=== PATIENT | male | born 1980 | race Two or more races ===

== ENCOUNTER 2018-12-18 19:32 | Observation (INO) | payer SELFPAY ==
[2018-12-18 19:42] VITALS: BMI 32.1
--- NOTE | 2018-12-18 21:30 | PDOC ---
History of Present Illness - General Chief Complaint: Chest Pain Stated Complaint: CHEST PAIN NUMBNESS IN HAND Time Seen by Provider: 12/18/18 21:22 History Source: Patient Exam Limitations: No Limitations - History of Present Illness Initial Comments: Pt is a 38 yo M, with NIDDM and GERD, who is presenting with complaints of L- sided chest pain x2 weeks. Pt states the pain is non-exertional and is not worsened with moving. He says the pain over the past 2 days has been constant, and is a pressure-like feeling. He came to the ER today because the pain has become more intense and has not been intermittent. It has also been associated with numbness in b/l arms, and decreased sensation in his lower face b/l. Pt denies any recent fevers/chills, headache, vision changes, syncope, SOB, nausea/ vomiting, abdominal pain, urinary symptoms, diarrhea/constipation, or leg swelling. Pt has not taken his DM medications for over 2 years since running out of insurance. He had a cardiac stress test done ~4 years ago which was normal. Social: Pt denies any cigarette, alcohol, or drug use. Pt denies any recent travel or sick contacts. Surgical: no relevant history. Family: GM: [place] in 60s; GF - [place] in 50s; mother - DM 12/18/18 23:46 Past History - Travel Traveled outside of the country in the last 30 days: No Close contact w/someone who was outside of country & ill: No - Past Medical History Allergies/Adverse Reactions: Allergies Allergy/AdvReac Type Severity Reaction Status Date / Time No Known Allergies Allergy Verified 12/18/18 19:39 COPD: No Diabetes: Yes (? possible) - Suicide/Smoking/Psychosocial Hx Smoking History: Never smoked Review of Systems - Review of Systems Able to Perform ROS?: Yes Is the patient limited Hungarian proficient: No Constitutional: Yes: Weight Stable. No: Chills, Diaphoresis, Fever, Loss of Appetite, Malaise, Weakness HEENTM: No: Recent change in vision, Nose Congestion, Throat Pain, Throat Swelling Respiratory: No: Cough, Orthopnea, Shortness of Breath Cardiac (ROS): Yes: Chest Pain, Palpitations. No: Edema, Irregular Heart Rate, Lightheadedness, Syncope, Chest Tightness ABD/GI: No: Constipated, Diarrhea, Nausea, Poor Appetite, Poor Fluid Intake, Vomiting, Abdominal cramping : No: Burning, Dysuria, Pain, Urgency Musculoskeletal: No: Back Pain, Joint Pain, Muscle Weakness Integumentary: No: Rash Neurological: Yes: See HPI, Numbness, Paresthesia. No: Headache, Tingling, Tremors, Weakness, Unsteady Gait, Dizziness Psychiatric: No: Sleep Pattern Change, Change in Appetite Endocrine: No: Increased Urine, Change in Weight Hematologic/Lymphatic: No: Anemia, Blood Clots, Easy Bleeding, Easy Bruising All Other Systems: Reviewed and Negative *Physical Exam - Vital Signs Last Vital Signs Temp Pulse Resp BP Pulse Ox 98.2 F 66 18 111/66 100 12/18/18 19:39 12/18/18 19:39 12/18/18 19:39 12/18/18 19:39 12/18/18 19:39 - Physical Exam Comments: Vitals stable, pt afebrile. Pt in NAD, normal body habitus. PE showed pt alert and oriented. product safety head generally intact, muscular strength and sensation intact. Eyes PERRLA, EOMI. Oropharynx without erythema or exudates, no LAD b/l. No nasal congestion, hearing intact. Clear heart sounds, S1/S2, no JVD, b/l pedal edema, or heart murmur. Clear lung sounds, no respiratory distress, wheezes, crackles, or accessory muscle use. No chest wall tenderness to palpaiton, chest pain not reproducible with movement. No abdominal or CVA tenderness to palpation , no rebound, no guarding. Abdomen soft, non-distended, and with normoactive bowel sounds. Skin without jaundice or rash. 12/18/18 23:48 Moderate Sedation - Procedure Monitoring Vital Signs: Procedure Monitoring Vital Signs Temperature 98.2 F 12/18/18 19:39 Pulse Rate 66 12/18/18 19:39 Respiratory Rate 18 12/18/18 19:39 Blood Pressure 111/66 12/18/18 19:39 O2 Sat by Pulse Oximetry (%) 100 12/18/18 19:39 Heart Score/ECG Review - History History: Slightly suspicious - Electrocardiogram EKG: Normal - Age Age: </= 45 - Risk Factors Risk Factors Heart Score: Yes Hx Diabetes, Yes Positive family hx of cardiac disease Based on the list above the patient has:: 1-2 risk factors ED Treatment Course - LABORATORY CBC & Chemistry Diagram: 12/18/18 22:30 12/18/18 22:30 Medical Decision Making - Medical Decision Making Pt was seen at bedside, also will be seen by attending Dr. Duggan. Pt presenting with complaints of L-sided chest pain x2 weeks. Pt states the pain is non-exertional and is not worsened with moving. He says the pain over the past 2 days has been constant, and is a pressure-like feeling. He came to the ER today because the pain has become more intense and has not been intermittent. It has also been associated with numbness in b/l arms, and decreased sensation in his lower face b/l. Pt denies any recent fevers/chills, headache, vision changes, syncope, SOB, nausea/vomiting, abdominal pain, urinary symptoms, diarrhea/constipation, or leg swelling. Pt has not taken his DM medications for over 2 years since running out of insurance. He had a cardiac stress test done ~4 years ago which was normal. Vitals stable, pt afebrile. Pt in NAD, normal body habitus. PE showed pt alert and oriented. product safety head generally intact, muscular strength and sensation intact. Eyes PERRLA, EOMI. Oropharynx without erythema or exudates, no LAD b/l. No nasal congestion, hearing intact. Clear heart sounds, S1/S2, no JVD, b/l pedal edema, or heart murmur. Clear lung sounds, no respiratory distress, wheezes, crackles, or accessory muscle use. No chest wall tenderness to palpaiton, chest pain not reproducible with movement. No abdominal or CVA tenderness to palpation , no rebound, no guarding. Abdomen soft, non-distended, and with normoactive bowel sounds. Skin without jaundice or rash. Considering ACS vs atypical angina vs MSK strain/costochondritis Ordered work-up including CBC, CMP, cardiac profile (trop x2), chest x-ray, ECG. No interventions provided at this time. Will continue to reassess pt and monitor for symptomatic improvement. ECG: NSR, intervals WNL. No TWIs or significant ST segment changes. No significant changes from prior ECG. 12/18/18 22:10 CBC and CMP WNL. First troponin <.02 -- second troponin to be drawn at 1:30. Pt taken for chest x-ray. 12/18/18 23:34 Chest x-ray appears clear, no lobar infiltrates, no cardiomegaly. 12/18/18 23:42 Hospitalist team accepted pt for admission to [facility] (Dr. Hazel). Providing pt 0.4 SL NG and 182 mg PO aspirin. 12/19/18 00:07 *DC/Admit/Observation/Transfer Diagnosis at time of Disposition: Chest pain Qualifiers: Chest pain type: unspecified Qualified Code(s): R07.9 - Chest pain, unspecified - Discharge Dispostion Condition at time of disposition: Stable Decision to Admit order: Yes - Referrals - Patient Instructions - Post Discharge Activity
--- NOTE | 2018-12-18 21:59 | PDOC ---
Attending Attestation - HPI HPI: 12/18/18 23:32 The patient is a 38 year old male with a PMH of NIDDM, who has not been treated for the past 2 years 2/2 insurance issues, and GERD who presents to the ER with chest pressure for the past two weeks. Patient states the chest pressure is nonexertional with associated numbness/tingling to both arms, slight numbness on the left cheek, and lightheadedness. Patient reports the chest pressure worsened these past two days and became more constant prompting him to come to the ER for further evaluation. Denies taking meds at home. Denies any prior evaluations for his chest pain. Patient is a nonsmoker and denies any cardiac history. Patient has a positive cardiac history in his family. Patient denies shortness of breath, headache and dizziness. Denies fever, chills, nausea, vomit, diarrhea and constipation. Denies dysuria, frequency, urgency and hematuria. Allergies: NKA Past surgical history: None reported. Social history: No reported alcohol, drug or cigarette use. - Physicial Exam PE: 12/18/18 23:32 Agree with resident's exam. <Negin Jones - Last Filed: 12/18/18 23:49> - Resident Resident Name: Sarita Cavanaugh - ED Attending Attestation I have performed the following: I have examined & evaluated the patient, The case was reviewed & discussed with the resident, I agree w/resident's findings & plan - Medical Decision Making 12/19/18 00:00 38-year-old male with intermittent chest pain Patient has active discomfort in the emergency department as well as newly revealed family history of coronary artery disease and myocardial infarction in multiple family members under the age of 50 He will be held on hospitalist service for observation <Lanny Duggan - Last Filed: 12/19/18 00:01>
[2018-12-18 22:37] LABS: BASO % 0.7 % (0-2.0); EOS % 3.2 % (0-4.5); HEMOGLOBIN 14.1 GM/dL (11.7-16.9); LYMPH % 35.1 % (8-40); MCH 27.4 pg (25.7-33.7); MCHC 34.4 g/dl (32.0-35.9); MEAN CELL VOLUME 79.7 fl (80-96); MEAN PLT VOLUME 7.6 fl (7.5-11.1); MONO % 4.8 % (3.8-10.2); NEUT % 56.2 % (42.8-82.8); PLATELET COUNT 192 K/MM3 (134-434); RBC 5.14 M/mm3 (4.00-5.60); RDW 14.1 % (11.9-15.9); WHITE BLOOD COUNT 8.1 K/mm3 (4.0-10.0)
[2018-12-18 23:24] LABS: ALK PHOS 93 U/L (45-117); ANION GAP 7 MMOL/L (8-16); BILIRUBIN,TOTAL 0.4 mg/dL (0.2-1); BLOOD UREA NITROGEN 22 mg/dL (7-18); CALCIUM 8.8 mg/dL (8.5-10.1); CHLORIDE 106 mmol/L (98-107); CO2 28 mmol/L (21-32); CREATININE 1.1 mg/dL (0.55-1.3); GLUCOSE,RANDOM 90 mg/dL (74-106); SGOT/AST 20 U/L (15-37); SGPT/ALT 35 U/L (13-61); SODIUM 142 mmol/L (136-145)
[2018-12-18] MEDS ORDERED: ASPIRIN 81 MG CHEWABLE TABLETS PO ONE (23:49)
[2018-12-18] MEDS ORDERED: NITROGLYCERIN SUBLINGUAL 1/150 0.4 MG TAB SL ONE (23:50)
[2018-12-19] MEDS ORDERED: NITROGLYCERIN SUBLINGUAL 1/150 0.4 MG TAB ONE (00:14)
[2018-12-19] MEDS ORDERED: ASPIRIN 81 MG CHEWABLE TABLETS ONE (00:14)
--- NOTE | 2018-12-19 00:32 | HP ---
CHIEF COMPLAINT:chest pain PCP:none HISTORY OF PRESENT ILLNESS: Patient is a 38 year old male with past medical history of GERD, presented with constant left-sided chest pain that started 2 weeks ago. Patient described pain as constant, pressure-like 5/10, nonradiating, left-sided chest pain, with no aggravating or alleviating symptoms. Today, patient reported pain was worse and more persistent. He also reported having some lightheadedness and facial numbness on his left cheek that started this morning, that spontaneously resolved in the afternoon. Otherwise, patient denies any fever, chills, headache , nausea, vomiting, SOB, palpitations, abdominal pain, diarrhea, urinary symptoms. ER course was notable for: (1)Trop <0.02, EKG NSR with no ST-T wave abnormalities (2) (3) Recent Travel:denies PAST MEDICAL HISTORY: GERD PAST SURGICAL HISTORY: none Social History: Smoking:denies Alcohol:denies Drugs: denies Lives with and 2 children. 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 Family History: Mother - DM Brother - HTN First cousin - sudden cardiac at 30s Allergies No Known Allergies Allergy (Verified 12/18/18 19:39) HOME MEDICATIONS: REVIEW OF SYSTEMS CONSTITUTIONAL: Absent: fever, chills, diaphoresis, generalized weakness, malaise, loss of appetite, weight change HEENT: Absent: rhinorrhea, nasal congestion, throat pain, throat swelling, difficulty swallowing, mouth swelling, ear pain, eye pain, visual changes CARDIOVASCULAR: Absent: chest pain, syncope, palpitations, irregular heart rate, lightheadedness , peripheral edema RESPIRATORY: Absent: cough, shortness of breath, dyspnea with exertion, orthopnea, wheezing, stridor, hemoptysis GASTROINTESTINAL: Absent: abdominal pain, abdominal distension, nausea, vomiting, diarrhea, constipation, melena, hematochezia GENITOURINARY: Absent: dysuria, frequency, urgency, hesitancy, hematuria, flank pain, genital pain MUSCULOSKELETAL: Absent: myalgia, arthralgia, joint swelling, back pain, neck pain SKIN: Absent: rash, itching, pallor HEMATOLOGIC/IMMUNOLOGIC: Absent: easy bleeding, easy bruising, lymphadenopathy, frequent infections ENDOCRINE: Absent: unexplained weight gain, unexplained weight loss, heat intolerance, cold intolerance NEUROLOGIC: Absent: headache, focal weakness or paresthesias, dizziness, unsteady gait, seizure, mental status changes, bladder or bowel incontinence PSYCHIATRIC: Absent: anxiety, depression, suicidal or homicidal ideation, hallucinations. PHYSICAL EXAMINATION Vital Signs - 24 hr 12/18/18 12/18/18 19:39 21:50 Temperature 98.2 F Pulse Rate 66 Pulse Rate [ 57 L Apical] Respiratory 18 16 Rate Blood Pressure 111/66 Blood Pressure 132/81 [Left Arm] O2 Sat by Pulse 100 100 Oximetry (%) GENERAL: Awake, alert, and fully oriented, in no acute distress. HEAD: Normal with no signs of trauma. EYES: PERRLA, EOMI, sclera anicteric, conjunctiva clear. EARS, NOSE, THROAT: Ears normal, oropharynx clear without exudates. Moist mucous membranes. NECK: Normal range of motion, supple without lymphadenopathy, JVD, or masses. LUNGS: Breath sounds equal, clear to auscultation bilaterally. HEART: Regular rate and rhythm, normal S1 and S2 without murmur, rub or gallop. ABDOMEN: Soft, nontender, not distended, normoactive bowel sounds. MUSCULOSKELETAL: Normal range of motion at all joints. No CVA tenderness. UPPER EXTREMITIES: 2+ pulses, warm, well-perfused. No peripheral edema. LOWER EXTREMITIES: 2+ pulses, warm, well-perfused. No peripheral edema. NEUROLOGICAL: Cranial nerves II-XII intact. Motor strength 5/5, sensation intact on all extremities. Normal speech. Normal gait. PSYCHIATRIC: Cooperative. Good eye contact. Appropriate mood and affect. SKIN: Warm, dry, normal turgor, no rashes or lesions. Laboratory Results - last 24 hr 12/18/18 12/18/18 12/18/18 21:56 22:30 22:30 WBC 8.1 RBC 5.14 Hgb 14.1 Hct 41.0 MCV 79.7 L MCH 27.4 MCHC 34.4 RDW 14.1 Plt Count 192 MPV 7.6 Absolute Neuts (auto) 4.5 Neutrophils % 56.2 Lymphocytes % 35.1 Monocytes % 4.8 Eosinophils % 3.2 Basophils % 0.7 Nucleated RBC % 0 Sodium 142 Potassium 4.0 Chloride 106 Carbon Dioxide 28 Anion Gap 7 L BUN 22 H Creatinine 1.1 Creat Clearance w eGFR > 60 POC Glucometer 82 Random Glucose 90 Calcium 8.8 Total Bilirubin 0.4 AST 20 ALT 35 Alkaline Phosphatase 93 Creatine Kinase 191 Creatine Kinase Index 0.9 CK-MB (CK-2) 1.9 Troponin I < 0.02 Total Protein 7.0 Albumin 4.0 ASSESSMENT/PLAN: Patient is a 38 year old male with past medical history of GERD, presented with constant left-sided chest pain that started 2 weeks ago. #Typical chest pain, rule out ACS -Initial trop <0.02, EKG unremarkable, with no acute ischemic changes -Aspirin 162mg, Nitroglycerin 0.4mg given at the ED -Will trend trop -Lipid profile -Echo ordered -Tele monitoring -Consider cardio consult. -Will defer to day team if stress test be done as inpatient or outpatient -Will keep NPO for now #Left facial numbness, rule out TIA -Head CT and carotid doppler -Vit B12, folate, TSH levels ordered -neuro checks q4h -Consider brain MRI #FEN -Not on any standing fluids -Electrolytes wnl, routine bmp monitoring -NPO #Prophylaxis -Lovenox 40mg sq daily #Disposition -full code -tele obs Visit type - Emergency Visit Emergency Visit: Yes ED Registration Date: 12/18/18 Care time: The patient presented to the Emergency Department on the above date and was hospitalized for further evaluation of their emergent condition. - New Patient This patient is new to me today: Yes Date on this admission: 12/20/18 - Critical Care Critical Care patient: No
--- NOTE | 2018-12-19 01:02 | PN ---
Teaching Attending Note Name of Resident: Aislinn Vizcaino ATTENDING PHYSICIAN STATEMENT I saw and evaluated the patient. I reviewed the resident's note and discussed the case with the resident. I agree with the resident's findings and plan as documented. SUBJECTIVE: Seen and examined with resident; please refer to their note for further historical documentation. Briefly, this is a 38 y/o male who presents to the ER with a CC of chest pain. It is somewhat atypical in nature, occuring on and off every day for the past 2 weeks before becoming more severe and constant today leading him to come to the ER. His maternal cousin of a PR at his age. he is also obese. Has a history of GERD but no other chronic medical problems. He does not smoke, drink, or use drugs. He also mentions incidentally that he had some left facial numbness (NIHSS 0); nothing makes it better or worse and it is resolving. It happened spontaneously. No history of PFO, etc. States it is almost gone at this point 10 sys ROS done and negative aside from HPI PMH, PSH, Family hx, Social hx reviewed Medication list pending reconciliation OBJECTIVE: VS, labs, imaging reviewed NAD, AAO, resting comfortably in bed NC AT EOMI PERRLA RRR s1/2 no mgr NT ND +BS CN2-12 wnl, no fnd; sensorium actually intact on face; more of parasthesia Normal mood, appropriate behavior EKG reviewed; nonspecific changes Initial troponin pending; labs as a whole are unremarkable ASSESSMENT AND PLAN: Patient presents with chest pain; has multiple risk factors (FH premature CAD, obesity) 1) Chest pain in adult, r/o ACS -Place on telemetry, trend troponin. Can check echo. Discuss with CV utility of further testing. No EKG changes; can consider repeating. He is afebrile and hemodynamically stable. Check TSH/Lipid/A1c 2) L-Facial numbness -Likely parasthesia but need to r/o anything more significant. Checking CT head and B12/TSH. Consider carotid dopplers. Consider MRI in the morning vs. discussing with neurology. If he doesn't have any undiagnosed underlying medical issues (severe vascular dz, PFO, etc.) stroke is very unlikely in a healthy 38 y/o 3) GERD -Continue home meds (takes OTC omeprazole at home) Full code
[2018-12-19 07:18] LABS: BASO % 0.5 % (0-2.0); EOS % 4.3 % (0-4.5); HEMATOCRIT 39.9 % (35.4-49); HEMOGLOBIN 13.3 GM/dL (11.7-16.9); LYMPH % 31.7 % (8-40); MCH 26.6 pg (25.7-33.7); MCHC 33.4 g/dl (32.0-35.9); MEAN CELL VOLUME 79.6 fl (80-96); MEAN PLT VOLUME 8.1 fl (7.5-11.1); MONO % 5.5 % (3.8-10.2); PLATELET COUNT 191 K/MM3 (134-434); RBC 5.02 M/mm3 (4.00-5.60); RDW 14.3 % (11.9-15.9); WHITE BLOOD COUNT 6.3 K/mm3 (4.0-10.0)
[2018-12-19 07:50] LABS: ANION GAP 6 MMOL/L (8-16); BLOOD UREA NITROGEN 25 mg/dL (7-18); CALCIUM 8.1 mg/dL (8.5-10.1); CHLORIDE 107 mmol/L (98-107); CO2 27 mmol/L (21-32); CREATININE 1.1 mg/dL (0.55-1.3); GLUCOSE,RANDOM 134 mg/dL (74-106); MAGNESIUM 2.2 mg/dL (1.8-2.4); PHOSPHOROUS 3.4 mg/dL (2.5-4.9); POTASSIUM 3.9 mmol/L (3.5-5.1); SODIUM 140 mmol/L (136-145)
[2018-12-19] MEDS ORDERED: ENOXAPARIN NA (PORCINE) 40 MG/0.4 ML DISP.SYRIN SQ SCH (10:00)
--- NOTE | 2018-12-19 10:50 | EKG ---
Test Reason : Blood Pressure : / mmHG Vent. Rate : 060 BPM Atrial Rate : 060 BPM P-R Int : 168 ms QRS Dur : 086 ms QT Int : 426 ms P-R-T Axes : 048 016 019 degrees QTc Int : 426 ms NORMAL SINUS RHYTHM NORMAL ECG NO PREVIOUS ECGS AVAILABLE Confirmed by Chuy Osman MD ([id number]) on 12/19/2018 10:49:48 AM Referred By: Confirmed By:Chuy Osman MD
[2018-12-19] MEDS ORDERED: ENOXAPARIN NA (PORCINE) 40 MG/0.4 ML DISP.SYRIN SQ ONE (11:20)
--- NOTE | 2018-12-19 12:08 | CON.CARD ---
Consult Consult Specialty:: cardiology Reason for Consultation:: chest pain; risks for CAD - History of Present Illness Chief Complaint: Pt A&Ox3; presently asymptomatic. His is at bedside. History of Present Illness: Pt is a 38 yo Mman (b. [place]), with NIDDM (diagneosed 2014; stopped Metformin and other meds a year later due to lack of insurance), overweight, sedentary, and GERD, who is presenting with complaints of L-sided chest pain x2 weeks. Pt states the pain is non-exertional and is not worsened with moving. He says the pain over the past 2 days has been constant, and is a pressure-like feeling. He came to the ER today because the pain has become more intense and has not been intermittent. It has also been associated with numbness in b/l arms , and decreased sensation in his lower face b/l. Pt denies any recent fevers/ chills, headache, vision changes, syncope, SOB, nausea/vomiting, abdominal pain , urinary symptoms, diarrhea/constipation, or leg swelling. Pt has not taken his DM medications for over 2 years since running out of insurance. He had a cardiac stress test done ~4 years ago which was normal. Social: Pt denies any cigarette, alcohol, or drug use. Pt denies any recent travel or sick contacts. Surgical: no relevant history. 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 He is on his feet all day, but does little aerobic exercise. Hx stress test in 2014: ?results. - History Source History Provided By: Patient, Family Member, Medical Record Limitations to Obtaining History: No Limitations - Alcohol/Substance Use Hx Alcohol Use: No - Smoking History Smoking history: Never smoked - Social History Usual Living Arrangement: With Spouse Home Medications - Allergies Allergies/Adverse Reactions: Allergies Allergy/AdvReac Type Severity Reaction Status Date / Time ciprofloxacin [From Cipro] Allergy Rash Verified 12/19/18 04:14 - Home Medications Home Medications: Ambulatory Orders Atorvastatin Ca [Lipitor] 20 mg PO HS #30 tablet 12/19/18 Metformin HCl [Metformin HCl ER] 500 mg PO DAILY 12/19/18 Omeprazole 20 mg PO DAILY 12/19/18 Family Disease History - Family Disease History Family Disease History: Heart Disease: Grandparent (grandmother and grandfather of MIs (50 and 60s yr old, respectively)) Review of Systems - Review of Systems Constitutional: reports: No Symptoms Eyes: reports: No Symptoms HENT: reports: No Symptoms Neck: reports: No Symptoms Breasts: reports: No Symptoms Reported Musculoskeletal: reports: No Symptoms Integumentary: reports: No Symptoms Neurological: reports: No Symptoms Endocrine: reports: No Symptoms Hematology/Lymphatic: reports: No Symptoms Psychiatric: reports: No Symptoms - Risk Factors Known Risk Factors: Yes: Age, Diabetes Mellitus, Gender, Hypercholesterolemia, Hypertension, Physical Inactivity Vital Signs: Vital Signs Temperature 98.4 F 12/19/18 11:29 Pulse Rate 64 12/19/18 11:29 Respiratory Rate 18 12/19/18 11:29 Blood Pressure 121/73 12/19/18 11:29 O2 Sat by Pulse Oximetry (%) 98 12/19/18 11:29 Constitutional: Yes: Well Nourished, Calm Eyes: Yes: WNL HENT: Yes: WNL Neck: Yes: WNL Respiratory: Yes: WNL Gastrointestinal: Yes: WNL Renal/: No: Anuria Cardiovascular: Yes: WNL JVD: No Carotid Bruit: No PMI: Non-Displaced Heart Sounds: Yes: S1, S2 Musculoskeletal: Yes: WNL Extremities: Yes: WNL Edema: No Peripheral Pulses WNL: Yes Integumentary: Yes: WNL Neurological: Yes: WNL ...Motor Strength: WNL Psychiatric: Yes: WNL - Other Data Labs, Other Data: CBC, BMP 12/19/18 05:30 12/19/18 06:30 Troponin, BNP 12/18/18 12/19/18 12/19/18 22:30 03:20 06:30 Troponin I < 0.02 < 0.02 < 0.02 Troponin, BNP 12/18/18 12/19/18 12/19/18 22:30 03:20 06:30 Troponin I < 0.02 < 0.02 < 0.02 Abnormal Lab Results 12/18/18 12/18/18 12/19/18 22:30 22:30 05:30 MCV 79.7 L 79.6 L Anion Gap 7 L BUN 22 H Random Glucose Hemoglobin A1c % Calcium Total LDL Cholesterol HDL Cholesterol Vitamin B12 Serum Folate 12/19/18 12/19/1812/19/19 06:00 06:30 06:30 MCV Anion Gap 6 L BUN 25 H Random Glucose 134 H Hemoglobin A1c % 6.6 H Calcium 8.1 L Total LDL Cholesterol 103 H HDL Cholesterol 38 L Vitamin B12 Serum Folate 19 H 12/19/18 06:30 MCV Anion Gap BUN Random Glucose Hemoglobin A1c % Calcium Total LDL Cholesterol HDL Cholesterol Vitamin B12 3431 H Serum Folate Ejection Fraction %: LVEF > or = 40 % Imaging - Results Chest X-ray: Image Reviewed (no acute pathology) EKG: Image Reviewed (normal study) Problem List - Problems (1) Diabetes Assessment/Plan: Normal, then elevated glucose; =HGBA1c 6.6. Hx dx DM in 2015-->metformin (stopped after a year due to lack of insurance). Rec: Evaluation re present state of glucose control. Consider start ACEI for HTN, renal protection. Keep LDL cholesterol < 70 mg/dL. The importance of balanced diet, portion control, exercise, and weight loss was discussed. Code(s): E11.9 - TYPE 2 DIABETES MELLITUS WITHOUT COMPLICATIONS (2) HTN (hypertension) Code(s): I10 - ESSENTIAL (PRIMARY) HYPERTENSION (3) Hyperlipidemia Code(s): E78.5 - HYPERLIPIDEMIA, UNSPECIFIED (4) Obesity (BMI 30.0-34.9) Assessment/Plan: The importance of following a heart-healthy diet, portion control, and exercise as aids to losing weight was disucssed. Code(s): E66.9 - OBESITY, UNSPECIFIED (5) Chest pain Assessment/Plan: TNI < 0.02 x 3. EKG: normal sinus rhythm; normal study. ECHO pending. Multilpe risk factors for CAD, including gender, DM, obesity, sedentary lifestyle, HTN. Stress treadmill MIBI: if without significant ischemia, pt may be followed as outpatient from cardiac perspective. Addendum: Stress MIBI today showed no ischemia. Code(s): R07.9 - CHEST PAIN, UNSPECIFIED Qualifiers: Chest pain type: unspecified Qualified Code(s): R07.9 - Chest pain, unspecified
--- NOTE | 2018-12-19 12:40 | ECHO ---
Name: NGUYEN HLODEN Exam:Adult Echocardiogram Study Date: 12/19/2018 07:55 AM Age: 38 yrs Height: 67 in Weight: 205 lb BSA: 2.0 m2 MMode/2D Measurements & Calculations IVSd: 0.71 cm Ao root diam: 2.8 cm LVIDd: 5.0 cm LA dimension: 3.2 cm LVIDs: 3.2 cm LVPWd: 0.77 cm EDV(Teich): 119.8 ml LVOT diam: 2.1 cm ESV(Teich): 41.3 ml Doppler Measurements & Calculations MV E max javier: 77.5 cm/sec Med Peak E' Javier: 6.6 cm/sec MV A max javier: 53.8 cm/sec Med E/e': 11.8 MV E/A: 1.4 Lat Peak E' Javier: 15.9 cm/sec Lat E/e': 4.9 Procedure A complete two-dimensional transthoracic echocardiogram was performed (2D, M-mode, Doppler and color flow Doppler). Left Ventricle The left ventricular size, thickness and function are normal. Ejection Fraction = 60%. The transmitra l spectral Doppler flow pattern is normal for age. The left ventricular wall motion is normal. Right Ventricle The right ventricle is normal in size and function. Atria Normal left and right atrial size and function. Mitral Valve The mitral valve is normal in structure and function. There is trace mitral regurgitation. Tricuspid Valve The tricuspid valve is normal in structure and function. There is trace tricuspid regurgitation. Ther e was insufficient TR detected to calculate RV systolic pressure. Aortic Valve The aortic valve is normal in structure and function. Pulmonic Valve The pulmonic valve is normal in structure and function. Great Vessels The aortic root is normal size. Pericardium/Pleura There is no pericardial effusion. There is no pleural effusion. Interpretation Summary This was essentially a normal study. The left ventricular size, thickness and function are normal Ejection Fraction = 60%. The right ventricle is normal in size and function. There is trace mitral regurgitation. There is trace tricuspid regurgitation. MD Chuy Osman 12/19/2018 12:39 PM
--- NOTE | 2018-12-19 15:11 | PN ---
Teaching Attending Note Name of Resident: Chintan Carballo ATTENDING PHYSICIAN STATEMENT I saw and evaluated the patient. I reviewed the resident's note and discussed the case with the resident. I agree with the resident's findings and plan as documented. SUBJECTIVE: No fever or chills. reports that his PC resolved. it felt pressure like x 1 week , with no alleviating factors or aggravating factors. no exertional CP or SOB. he reported a small area of numbness on left cheek about 0.5 cm in diameter. that resolved after lasting for yesterday. no weakness, no tingling. no JACOB or change in vision . he reports chronic numbness in his hands for which he had nerve conduction studies as out pt. He had stress test OBJECTIVE: NAD Cv: RRR Lungs: CTAB Ext : no edema or erythema , no fungal infection among toes Neuro; EOMI, round equal pupils, reactive to light. No facial droop. Nl facial sensation. strength 5/5 in upper nad lower extremities proximally and distally. sensation to light touch NL. Reflexes 2+ knee jerk and biceps and BR b/l. ASSESSMENT AND PLAN: 38 y/o man with h/o Dm and and GERD who presented with CP and complained of L sided numbness in face 1- CP: description is atypical in nature, but due to the risk factors he has, stress test was done. results are pending. EKG reviewed.no ischemic changes. appreciate Dr. keyes's help. start lipitor due to LDL above gall. will hold off asa unless stress test is + he can be started on ACEI as out pt after he establishes care with PCP as renal function and electrolytes need to be monitored initially echo pending 2- DM : A1c 6.6 . - start metformin at dc 3- L sided numbness, not clear of etiology. unlikley anything neurological as area is very small 0.5 cm and resolved . advised to get an non-emergent MRI as out pt 4- Dispo : if stress is neg can dc later today
--- NOTE | 2018-12-19 17:52 | DS ---
Physical Exam: SUBJECTIVE: Patient seen and examined at bedside- patient still having pain though in no acute distress no H/A, dizziness, OBJECTIVE: Vital Signs Period Temp Pulse Resp BP Sys/Rock Pulse Ox Last 24 Hr 98.2 F-98.4 F 57-66 16-18 111-132/66-81 98-100 PHYSICAL EXAM GENERAL: The patient is awake, alert, and fully oriented, in no acute distress. EYES: PEERLA; EOMI; no scleral icterus NECK: Tno JVD;no lymphadenopathy. LUNGS: CTA B/L; no rales, rhonchi or wheezing HEART: Regular rate and rhythm, S1, S2 without murmur, rub or gallop. ABDOMEN: Soft, nontender, nondistended, normoactive bowel sounds, no guarding, no rebound, no hepatosplenomegaly, no masses. EXTREMITIES: 2+ pulses, warm, well-perfused, no edema. NEUROLOGICAL: Cranial nerves II through XII grossly intact. Normal speech, gait not observed. PSYCH: Normal mood, normal affect. SKIN: Warm, dry, normal turgor, no rashes or lesions noted. LABS Laboratory Results - last 24 hr 12/18/18 12/18/18 12/18/18 21:56 22:30 22:30 WBC 8.1 RBC 5.14 Hgb 14.1 Hct 41.0 MCV 79.7 L MCH 27.4 MCHC 34.4 RDW 14.1 Plt Count 192 MPV 7.6 Absolute Neuts (auto) 4.5 Neutrophils % 56.2 Lymphocytes % 35.1 Monocytes % 4.8 Eosinophils % 3.2 Basophils % 0.7 Nucleated RBC % 0 D-Dimer Sodium 142 Potassium 4.0 Chloride 106 Carbon Dioxide 28 Anion Gap 7 L BUN 22 H Creatinine 1.1 Creat Clearance w eGFR > 60 POC Glucometer 82 Random Glucose 90 Hemoglobin A1c % Calcium 8.8 Phosphorus Magnesium Total Bilirubin 0.4 AST 20 ALT 35 Alkaline Phosphatase 93 Creatine Kinase 191 Creatine Kinase Index 0.9 CK-MB (CK-2) 1.9 Troponin I < 0.02 Total Protein 7.0 Albumin 4.0 Triglycerides Cholesterol Total LDL Cholesterol HDL Cholesterol Vitamin B12 Serum Folate TSH 12/19/18 12/19/18 12/19/18 03:20 03:20 05:30 WBC 6.3 RBC 5.02 Hgb 13.3 Hct 39.9 MCV 79.6 L MCH 26.6 MCHC 33.4 RDW 14.3 Plt Count 191 MPV 8.1 Absolute Neuts (auto) 3.7 Neutrophils % 58.0 Lymphocytes % 31.7 Monocytes % 5.5 Eosinophils % 4.3 Basophils % 0.5 Nucleated RBC % 0 D-Dimer 224 Sodium Potassium Chloride Carbon Dioxide Anion Gap BUN Creatinine Creat Clearance w eGFR POC Glucometer Random Glucose Hemoglobin A1c % Calcium Phosphorus Magnesium Total Bilirubin AST ALT Alkaline Phosphatase Creatine Kinase Creatine Kinase Index CK-MB (CK-2) Troponin I < 0.02 Total Protein Albumin Triglycerides Cholesterol Total LDL Cholesterol HDL Cholesterol Vitamin B12 Serum Folate TSH 12/19/18 12/19/18 12/19/18 06:00 06:30 06:30 WBC RBC Hgb Hct MCV MCH MCHC RDW Plt Count MPV Absolute Neuts (auto) Neutrophils % Lymphocytes % Monocytes % Eosinophils % Basophils % Nucleated RBC % D-Dimer Sodium 140 Potassium 3.9 Chloride 107 Carbon Dioxide 27 Anion Gap 6 L BUN 25 H Creatinine 1.1 Creat Clearance w eGFR > 60 POC Glucometer Random Glucose 134 H Hemoglobin A1c % 6.6 H Calcium 8.1 L Phosphorus 3.4 Magnesium 2.2 Total Bilirubin AST ALT Alkaline Phosphatase Creatine Kinase Creatine Kinase Index CK-MB (CK-2) Troponin I < 0.02 Total Protein Albumin Triglycerides 135 Cholesterol 161 Total LDL Cholesterol 103 H HDL Cholesterol 38 L Vitamin B12 Serum Folate 19 H TSH 1.32 12/19/18 06:30 WBC RBC Hgb Hct MCV MCH MCHC RDW Plt Count MPV Absolute Neuts (auto) Neutrophils % Lymphocytes % Monocytes % Eosinophils % Basophils % Nucleated RBC % D-Dimer Sodium Potassium Chloride Carbon Dioxide Anion Gap BUN Creatinine Creat Clearance w eGFR POC Glucometer Random Glucose Hemoglobin A1c % Calcium Phosphorus Magnesium Total Bilirubin AST ALT Alkaline Phosphatase Creatine Kinase Creatine Kinase Index CK-MB (CK-2) Troponin I Total Protein Albumin Triglycerides Cholesterol Total LDL Cholesterol HDL Cholesterol Vitamin B12 3431 H Serum Folate TSH HOSPITAL COURSE: Date of Admission:12/18/18 38 y/o male with PMH of GERD and diabetes (though he had not taken metformin in years) presented to the ED with a 2 week history of continuous chest pain; nothing made the pain better or worse. there was no change with exertion. he tried taking aleve with no relief. he had a stress test and echo done 6 years ago which were normal. when he came to the ED his vitals were stable, his trops were negative times three, no EKG changes. he underwent a stress test which was normal and an echo which showed an EF of 60 percent and no abnormalities. his hba1c was 6.6 and his lipid panel was elevated. he was discharged home with lipitor 20mg, metformin 500 daily and with strict cardio follow up. Date of Discharge: 12/19/18 Minutes to complete discharge: 38 Discharge Summary Reason For Visit: CHEST PAIN Current Active Problems Chest pain (Acute) Diabetes (Chronic) Hyperlipidemia (Chronic) Obesity (BMI 30.0-34.9) (Chronic) Condition: Improved - Instructions Diet, Activity, Other Instructions: You came into the hospital with complaints of ongoing chest discomfort for the past 2 weeks. We did a stress test and an echo which were both normal. In addition, in your labs we found your cholesterol to be elevated so we started you on a cholesterol medication called lipitor. Also, your hemoglobin A1c was 6.6, which is indicative of diabetes, so we are starting you back on metformin. We suggest that you follow a low carb diet, staying away from salt/fatty foods, and increase your physical activity. Please take the following medication: -Lipitor 20mg daily (at bedtime) -Metformin 500mg daily Please follow up with the want ad supervisor, Dr. Dunlap within one week We are referring you to a primary care physician, please follow up with them within one week *if you begin to experience any chest pains, shortness of breath, fevers please return to the emergency room immediately You need MRi of your brain. please follow with and establish care with a PCP fot that. you can call the free clinic at [facility] to schedule appointment and they can refer you to neurology and card if you can't afford to pay out of pocket please apply for insurance Referrals: Glynn Sosa MD [Staff Physician] - Marc Dunlap MD [Staff Physician] - 1 Week Disposition: HOME - Home Medications Comprehensive Discharge Medication List: Ambulatory Orders Atorvastatin Ca [Lipitor] 20 mg PO HS #30 tablet 12/19/18 Metformin HCl [Metformin HCl ER] 500 mg PO DAILY 30 Days #30 tab 12/19/18 Omeprazole 20 mg PO DAILY 12/19/18 Problem List - Problems (1) Chest pain Code(s): R07.9 - CHEST PAIN, UNSPECIFIED Qualifiers: Chest pain type: unspecified Qualified Code(s): R07.9 - Chest pain, unspecified (2) Diabetes Code(s): E11.9 - TYPE 2 DIABETES MELLITUS WITHOUT COMPLICATIONS (3) Hyperlipidemia Code(s): E78.5 - HYPERLIPIDEMIA, UNSPECIFIED This patient is new to me today: Yes Date on this admission: 12/19/18 Emergency Visit: Yes ED Registration Date: 12/18/18 Care time: The patient presented to the Emergency Department on the above date and was hospitalized for further evaluation of their emergent condition. Critical Care patient: No - Discharge Referral Referred to [facility] Med P.C.: No
[2018-12-19 18:37] VITALS: BP 109/85; PULSE 80; TEMP 98.5
[2018-12-19] MEDS ORDERED: ATORVASTATIN CA 20 MG TABLET (FP) PO SCH (22:00)
--- NOTE | 2018-12-22 10:33 | EKG ---
Test Reason : Blood Pressure : / mmHG Vent. Rate : 063 BPM Atrial Rate : 063 BPM P-R Int : 170 ms QRS Dur : 088 ms QT Int : 422 ms P-R-T Axes : 054 034 023 degrees QTc Int : 431 ms NORMAL SINUS RHYTHM NORMAL ECG WHEN COMPARED WITH ECG OF 18-DEC-2018 19:52, NO SIGNIFICANT CHANGE WAS FOUND Confirmed by MI WEBER MD ([id number]) on 12/22/2018 10:33:03 AM Referred By: Confirmed By:MI WEBER MD
== END 2018-12-19 18:35 | disposition home or self-care (01) ==
LOC: JER 19:32 → JERBED 23:51 → UNDODISOB 12-19 18:35
PROVIDERS: ADMIT Internal Medicine; ATTEND Internal Medicine
PROC: 3E013GC Introduction of Other Therapeutic Substance into Subcutaneous Tissue, Percutaneous Approach (ICD-10-PCS; principal; 2018-12-18)
DX: R07.9 Chest pain, unspecified (principal); R20.0 Anesthesia of skin; I10 Essential (primary) hypertension; E78.5 Hyperlipidemia, unspecified; E11.9 Type 2 diabetes mellitus without complications; K21.9 Gastro-esophageal reflux disease without esophagitis; E66.9 Obesity, unspecified; Z68.32 Body mass index [BMI] 32.0-32.9, adult; Z79.84 Long term (current) use of oral hypoglycemic drugs
CPT/HCPCS: 36415; 70450-TC; 71046-TC-FY; 78452-TC; 80048; 80053; 80061; 82550; 82553; 82607; 82746; 82962; 83036; 83721; 83735; 84100; 84443; 84484; 85025; 85379; 93005; 93010; 93017; 93306-TC; 96372; 99283-25; A9502; G0378